=== PATIENT | female | born 1950 | race Caucasian/White ===

== ENCOUNTER → 2016-08-01 | Outpatient (CLI) | payer OTHER, MEDICARE ==
[2016-03-26 14:45] VITALS: BP 140/76
[~2016-08-01] MED LIST: BUDE0.5A NEB; CEPH-263 PO; GUAI600T38 PO; IPRA3AMP NEB; PRED20TA PO
--- NOTE | 2016-08-01 11:04 | KCIC ---
PROCEDURE Two-view chest HISTORY Fever and chills for 3 days, cough, shortness of air with exertion, COPD COMPARISON February 19, 2016 FINDINGS Two views of the chest are submitted. There is no dependent pleural fluid or pneumothorax. Pericardial cardiac silhouette is similar, borderline enlarged. There is new mild linear opacity of the mid to inferior left hemithorax as seen on the PA view. There is again suspected emphysema. IMPRESSION 1. There is again suspected emphysema. There is increased mild linear opacity of the mid to inferior left boris thorax, atelectasis considered more likely than infiltrate. Electronically signed by: Willie Winkler MD (Aug 01, 2016 11:03:13)
== END | disposition home or self-care (01) ==
LOC: KCIC 10:32
PROVIDERS: ATTEND Nurse Practitioner Family
DX: J44.9 Chronic obstructive pulmonary disease, unspecified (principal); R05 Cough; R06.02 Shortness of breath
CPT/HCPCS: 71020

== ENCOUNTER → 2016-09-26 | Outpatient (CLI) | payer OTHER, MEDICARE ==
[2016-03-26 14:45] VITALS: BP 140/76
--- NOTE | 2016-09-26 16:19 | KCIC ---
PROCEDURE Bone mineral density exam HISTORY Osteoporosis screening, takes steroids COMPARISON None FINDINGS Bone mineral density exam utilizing DEXA was performed. Left hip bone mineral density of 0.772 grams/centimeter square corresponds with a T-score-1.4 and a Z-score 0.0. Lumbar spine bone mineral density of 0.946 grams/centimeter squared corresponds with T-score-0.9 and a Z-score 1.1. World Health Organization criteria for bone mineral density interpretation: Normal T-score greater than or equal to-1.0, Osteopenia T score between-1.0 and-2.5, Osteoporosis T-score less than or equal to-2.5. IMPRESSION 1. There is osteopenia of the left hip. 2. There is normal bone density of the lumbar spine. Electronically signed by: Willie Winkler MD (September 26, 2016 16:18:11)
== END | disposition home or self-care (01) ==
LOC: KCIC DEXA 15:31
PROVIDERS: ATTEND Nurse Practitioner Family
DX: M85.88 Other specified disorders of bone density and structure, other site (principal)
CPT/HCPCS: 77080